=== PATIENT | male | born 1960 | race Caucasian/White ===

== ENCOUNTER 2022-03-17 07:52 | Day surgery (SDC) | payer BC, MEDICAID ==
[2022-03-13 11:39] LABS: MEAN CORPUSCULAR HGB CONC 31.7 g/dL (33.0-36.5); PRE OP HEMATOCRIT 25.2 % (42.0-52.0)
[2022-03-13 11:40] LABS: ALBUMIN 4.2 G/DL (3.4-5.0); ALBUMIN/GLOBULIN RATIO 1.4 (1.1-1.5); ALKALINE PHOSPHATASE 68 IU/L (46-116); BLOOD UREA NITROGEN 17 MG/DL (7-18); BUN/CREATININE RATIO 18.5 (5.4-32.0); CALCIUM 8.6 MG/DL (8.5-10.1); CHLORIDE 102 MMOL/L (99-107); CREATININE 0.92 MG/DL (0.60-1.10); MEAN CORPUSCULAR HEMOGLOBIN 21.4 PG (27.0-31.0); MEAN CORPUSCULAR VOLUME 67.5 FL (78-98); MEAN PLATELET VOLUME 7.8 FL (7.4-10.4); PRE OP ALT 15 U/L (30-65); PRE OP ANION GAP 8 (8-16); PRE OP AST 12 U/L (10-37); PRE OP BILIRUB, TOTAL 0.2 MG/DL (0.0-1.0); PRE OP GLUCOSE 105 MG/DL (70-104); PRE OP PLATELET COUNT 222 X10'3 (140-440); PRE OP SODIUM 136 MMOL/L (135-145); RED BLOOD COUNT 3.74 X10'6 (4.70-6.10); RED CELL DISTRIBUTION WIDTH 18.8 % (11.5-14.5); TOTAL CARBON DIOXIDE 25.7 MMOL/L (24-32); TOTAL PROTEIN 7.3 G/DL (6.4-8.2); eGFR 84 ML/MIN
[2022-03-13 12:02] LABS: TOTAL CELLS COUNTED 100
[2022-03-13 12:03] LABS: ANISOCYTOSIS 2+; HYPOCHROMASIA 2+; MICROCYTOSIS 2+; PLATELET ESTIMATE NORMAL; TARGET CELLS FEW
[~2022-03-17] VITALS: Ht 185.4 cm; Wt 83.0 kg
[2022-03-17 07:30] VITALS: BP 134/69
[~2022-03-17 07:52] MED LIST: CILO100T3 PO; DILT60TA3 PO; DULO30CA52 PO; FLO0.4C PO; HYDR-3968 PO; IBUP-1986 PO; LIDOcaine 0.5% (5mg/ml) 50ml vial ONE; OMEP40CA21 PO; PREG75CA75 PO; ceFAZolin inj. 2,000 MG in dextrose 5%-water 100 ML IV ONE; famotidine 20mg tablet PO ONE; ringers solution, lactated 500 ML IV SCH; ringers solution, lacted 1,000 ML IV SCH
[2022-03-17] MEDS ORDERED: labetalol 20mg/4ml (5mg/ml) syringe IV PRN (09:00)
[2022-03-17] MEDS ORDERED: fentaNYL/PF 50MCG/1 ML 2ML syringe IV PRN ×2 (09:00)
[2022-03-17] MEDS ORDERED: morphine 2 MG/ML inj. syringe IV PRN (09:00)
[2022-03-17] MEDS ORDERED: hydrALAZINE 20mg/ml inj. IV PRN (09:00)
[2022-03-17] MEDS ORDERED: morphine 4 MG/ML inj SYRINge IV PRN (09:00)
[2022-03-17] MEDS ORDERED: ringers solution, lacted 1,000 ML IV SCH (09:00)
[2022-03-17] MEDS ORDERED: ondansetron/PF 4mg/2ml inj IV PRN (09:00)
[2022-03-17] MEDS ORDERED: BUPIVAcaine 0.5% inj/PF 30 ML ONE (09:01)
[2022-03-17] MEDS ORDERED: fentaNYL/PF 50MCG/1 ML 2ML syringe ONE (10:37)
[2022-03-17] MEDS ORDERED: MIDAZolam 1 MG/ML 5ML VIAL ONE (10:37)
[2022-03-17] MEDS ORDERED: LIDOcaine 0.5% (5mg/ml) 50ml vial ONE (10:41)
[2022-03-17] MEDS ORDERED: BUPIVAcaine 0.5% inj/PF 30 ml vial IJ ONE (11:00)
[2022-03-17 11:20] VITALS: BP 150/88
--- NOTE | 2022-03-17 11:20 | NUR ---
Received from OR via , accompanied by Anesthesiologist EDMAR AND OR NURSE and report given by Anesthesiolgist. PT IS ALERT AND ORIENTED X4. DENIES PAIN OR DISCOMFORT. ON ROOM AIR. VSS. DRESSING TO RT MIDDLE FINGER CDI Addendum: 03/17/22 at 1135 by Sharmila Holliday RN Amended: Links added.
[2022-03-17 11:30] VITALS: BP 143/84
[2022-03-17 11:40] VITALS: BP 144/84
[2022-03-17 11:50] VITALS: BP 138/83
[2022-03-17 12:00] VITALS: BP 136/84
--- NOTE | 2022-03-17 12:10 | NUR ---
PATIENT A&OX4, DENIES PAIN, V/S WNL, SCD OFF, 20G TO LUE D/C, LEFT FINGER DRESSING CDI . ICE AND ELEVATED LUE. I HAVE REVIEWED D/C INSTRUCTIONS WITH PATIENT INSTRUCTIONS WITH PATIENT AND THEY HAVE VERBALIZED UNDERSTANDING. PATIENT D/C HOME WITH ALL BELONGINGS AND FAMILY TRANSPORTED PATIENT HOME. Addendum: 03/17/22 at 1222 by Sharmila Holliday RN Amended: Links added.
== END 2022-03-17 12:10 | disposition home or self-care (01) ==
LOC: PAS 07:52
PROVIDERS: ATTEND Orthopaedic Surgery Hand Surgery
DX: I73.01 Raynaud's syndrome with gangrene (principal); M34.9 Systemic sclerosis, unspecified; D64.9 Anemia, unspecified; I10 Essential (primary) hypertension; J44.9 Chronic obstructive pulmonary disease, unspecified; F17.210 Nicotine dependence, cigarettes, uncomplicated; N40.0 Benign prostatic hyperplasia without lower urinary tract symptoms; F32.A Depression, unspecified; M19.90 Unspecified osteoarthritis, unspecified site; Z79.899 Other long term (current) drug therapy; Z98.890 Other specified postprocedural states; Z85.038 Personal history of other malignant neoplasm of large intestine; Z88.5 Allergy status to narcotic agent
CPT/HCPCS: 26951; 36415; 80053; 82948; 85025; 86885; 86900; 86901; 93005; J0690; J2250; J3010; J3490; J7030; J7060; J7120; S0020; Z7506; Z7512; 85007; A6449; A7000